=== PATIENT | male | born 1980 | race Caucasian/White ===

== ENCOUNTER 2016-11-01 10:46 | Emergency (ER) | payer SELFPAY ==
[~2016-11-01] VITALS: Ht 185.4 cm; Wt 93.0 kg
[2016-11-01] MEDS ORDERED: NAPROSYN500 MG PO (12:03)
== END 2016-11-01 13:39 | disposition home or self-care (01) ==
LOC: ED 10:46
DX: S42.202A Unspecified fracture of upper end of left humerus, initial encounter for closed fracture (principal); R03.0 Elevated blood-pressure reading, without diagnosis of hypertension; F17.200 Nicotine dependence, unspecified, uncomplicated; Z88.6 Allergy status to analgesic agent; V86.59XA Driver of other special all-terrain or other off-road motor vehicle injured in nontraffic accident, initial encounter; Y93.89 Activity, other specified; Y92.413 State road as the place of occurrence of the external cause; Y99.9 Unspecified external cause status